=== PATIENT | male | born 1995 | race Caucasian/White ===

== ENCOUNTER 2017-07-16 11:56 | Emergency (ER) | payer OTHER ==
[~2017-07-16] VITALS: Ht 177.8 cm; Wt 86.2 kg
[2017-07-16] MEDS ORDERED: BACTRIM DS TAB1 EACH PO (12:20)
[2017-07-16] MEDS ORDERED: KEFLEX500 M1 PO (12:20)
[2017-07-16 12:29] VITALS: BP 117/85
== END 2017-07-16 12:30 | disposition home or self-care (01) ==
LOC: M.ERS 11:56
DX: L60.0 Ingrowing nail (principal)